=== PATIENT | male | born 1950 | race Caucasian/White ===

== ENCOUNTER 2022-07-16 16:57 | Inpatient (IN) | payer BC, OTHER ==
[2022-07-16] MEDS ORDERED: FAMOTIDINE 20 MG/50 ML IVPB 20 MG/50 ML MG IVPB ONE ×2 (18:56→19:07)
[2022-07-16] MEDS ORDERED: ACETAMINOPHEN 1000 MG/100 ML BAG IVPB ONE (18:56)
[2022-07-16] MEDS ORDERED: MAG HYDROX/AL HYDROX/SIMETH 30 ML UNIT-DOSE CUP PO ONE (18:56)
[2022-07-16] MEDS ORDERED: MAG HYDROX/AL HYDROX/SIMETH 30 ML UNIT-DOSE CUP ONE (19:07)
[2022-07-16] MEDS ORDERED: ACETAMINOPHEN INJECTION 100 ML IVPB ONE (19:07)
[2022-07-16 19:27] LABS: BASO % 0.3 % (0-2.0); EOS % 5.5 % (0-4.5); HEMATOCRIT 36.2 % (35.4-49); HEMOGLOBIN 12.3 GM/dL (11.7-16.9); LYMPH % 19.4 % (8-40); MCH 31.9 pg (25.7-33.7); MEAN CELL VOLUME 93.7 fl (80-96); MEAN PLT VOLUME 8.8 fl (7.5-11.1); MONO % 6.3 % (3.8-10.2); NEUT % 68.5 % (42.8-82.8); PLATELET COUNT 146 10^3/uL (134-434); RBC 3.87 M/mm3 (4.00-5.60); RDW 14.3 % (11.9-15.9); WHITE BLOOD COUNT 7.3 K/mm3 (4.0-10.0)
[2022-07-16 19:30] LABS: EPI CELLS 2 /uL (0-25.1); HYALINE CASTS 0 /uL (0-3.1); PH,URINE 5.5 (5.0-8.0); URINE APPEARANCE CLEAR; URINE BACTERIA 1 /uL (0-1359); URINE BILIRUBIN NEGATIVE (NEGATIVE); URINE COLOR YELLOW; URINE GLUCOSE (UA) NEGATIVE (NEGATIVE); URINE KETONE NEGATIVE (NEGATIVE); URINE LEUK ESTERASE NEGATIVE (NEGATIVE); URINE NITRITE NEGATIVE (NEGATIVE); URINE PROTEIN 1+ (NEGATIVE); URINE RBC 71 /uL (0-23.9); URINE UROBILINOGEN 0.2 mg/dL (0.2-1.0); URINE WBC 3 /uL (0-25.8)
[2022-07-16 19:40] LABS: INR 1.21 (0.83-1.09)
[2022-07-16 19:42] LABS: ACTIVATED PTT 32.3 SECONDS (25.2-36.5)
[2022-07-16 20:02] LABS: POTASSIUM 3.7 mmol/L (3.5-5.1)
[2022-07-16 20:05] LABS: ALBUMIN 3.8 g/dl (3.4-5.0); BLOOD UREA NITROGEN 25.7 mg/dL (7-18); MAGNESIUM 2.1 mg/dL (1.8-2.4)
[2022-07-16 20:07] LABS: CREATININE 0.8 mg/dL (0.55-1.3)
[2022-07-16 20:09] LABS: BILIRUBIN,TOTAL 0.5 mg/dL (0.2-1); TOT PROT 7.2 g/dl (6.4-8.2)
[2022-07-16 20:13] LABS: N-TERMINAL BNP 5874.9 pg/ml (5-125)
[2022-07-17] MEDS ORDERED: FUROSEMIDE 40 MG/4 ML INJECTABLE VIAL IVPUSH ONE (02:45)
[2022-07-17] MEDS ORDERED: FUROSEMIDE 40 MG/4 ML INJECTABLE VIAL ONE (03:07)
[2022-07-17 07:06] LABS: BASO % 0.3 % (0-2.0); EOS % 6.8 % (0-4.5); HEMATOCRIT 36.1 % (35.4-49); HEMOGLOBIN 12.6 GM/dL (11.7-16.9); LYMPH % 17.7 % (8-40); MCH 32.5 pg (25.7-33.7); MCHC 34.9 g/dl (32.0-35.9); MEAN CELL VOLUME 93.1 fl (80-96); MEAN PLT VOLUME 9.3 fl (7.5-11.1); MONO % 8.1 % (3.8-10.2); NEUT % 67.1 % (42.8-82.8); PLATELET COUNT 147 10^3/uL (134-434); RBC 3.88 M/mm3 (4.00-5.60); RDW 13.9 % (11.9-15.9); WHITE BLOOD COUNT 5.3 K/mm3 (4.0-10.0)
[2022-07-17 07:30] LABS: POTASSIUM 3.3 mmol/L (3.5-5.1)
[2022-07-17 07:33] LABS: ALBUMIN 3.8 g/dl (3.4-5.0); BLOOD UREA NITROGEN 19.9 mg/dL (7-18); CALCIUM 9.1 mg/dL (8.5-10.1)
[2022-07-17 07:35] LABS: MAGNESIUM 1.8 mg/dL (1.8-2.4)
[2022-07-17 07:37] LABS: CREATININE 0.8 mg/dL (0.55-1.3)
[2022-07-17 07:38] LABS: BILIRUBIN,TOTAL 1.6 mg/dL (0.2-1); TOT PROT 6.9 g/dl (6.4-8.2)
[2022-07-17] MEDS ORDERED: APIXABAN 5 MG TABLET PO SCH (10:00)
[2022-07-17] MEDS ORDERED: POTASSIUM CHLORIDE TABS 20 MEQ TABLET.ER (FP) PO ONE (14:22)
[2022-07-17] MEDS: POLYETHYLENE GLYCOL (HEALTHYLAX) 3350 17 GM PACKET PO SCH (17:08)
[2022-07-17] MEDS: APIXABAN 5 MG TABLET PO SCH (21:35)
[2022-07-17] MEDS: CARVEDILOL 3.125 MG TABLET (FP) PO SCH (21:35)
[2022-07-18] MEDS: POLYETHYLENE GLYCOL (HEALTHYLAX) 3350 17 GM PACKET PO SCH (09:52)
[2022-07-18] MEDS: FUROSEMIDE 20 MG TABLET (FP) PO SCH (09:52)
[2022-07-18] MEDS: APIXABAN 5 MG TABLET PO SCH ×2 (09:52→21:26)
[2022-07-18] MEDS: CARVEDILOL 3.125 MG TABLET (FP) PO SCH ×2 (09:52→21:26)
[2022-07-18] MEDS: LISINOPRIL 20 MG TABLET PO SCH (09:53)
[2022-07-18 10:23] LABS: POTASSIUM 3.8 mmol/L (3.5-5.1)
[2022-07-18 10:24] LABS: CALCIUM 8.7 mg/dL (8.5-10.1)
[2022-07-18 10:25] LABS: BLOOD UREA NITROGEN 17.6 mg/dL (7-18); MAGNESIUM 2.1 mg/dL (1.8-2.4)
[2022-07-18 10:28] LABS: CREATININE 0.9 mg/dL (0.55-1.3); PHOSPHOROUS 2.8 mg/dL (2.5-4.9)
[2022-07-18] MEDS ORDERED: FAMOTIDINE 20 MG/50 ML IVPB 20 MG/50 ML MG IVPB ONE (12:01)
[2022-07-18] MEDS: ACETAMINOPHEN 325 MG TABLET (FP) PO PRN (12:28)
[2022-07-18] MEDS: METOCLOPRAMIDE HCL 10 MG TABLET (FP) PO SCH (16:37)
[2022-07-19] MEDS: METOCLOPRAMIDE HCL 10 MG TABLET (FP) PO SCH ×3 (06:01→16:53)
[2022-07-19] MEDS: ACETAMINOPHEN 325 MG TABLET (FP) PO PRN ×2 (06:05→21:09)
[2022-07-19 06:44] LABS: POTASSIUM 3.7 mmol/L (3.5-5.1)
[2022-07-19 06:46] LABS: CALCIUM 8.6 mg/dL (8.5-10.1)
[2022-07-19 06:49] LABS: PHOSPHOROUS 3.6 mg/dL (2.5-4.9)
[2022-07-19 06:50] LABS: CREATININE 0.8 mg/dL (0.55-1.3)
[2022-07-19 07:11] LABS: HEMATOCRIT 37.6 % (35.4-49); HEMOGLOBIN 13.2 GM/dL (11.7-16.9); MCH 32.7 pg (25.7-33.7); MCHC 35.2 g/dl (32.0-35.9); MEAN PLT VOLUME 8.8 fl (7.5-11.1); PLATELET COUNT 164 10^3/uL (134-434); RBC 4.04 M/mm3 (4.00-5.60); RDW 14.1 % (11.9-15.9); WHITE BLOOD COUNT 5.7 K/mm3 (4.0-10.0)
[2022-07-19] MEDS: FUROSEMIDE 20 MG TABLET (FP) PO SCH (09:44)
[2022-07-19] MEDS: LISINOPRIL 20 MG TABLET PO SCH (09:44)
[2022-07-19] MEDS: CARVEDILOL 3.125 MG TABLET (FP) PO SCH ×2 (09:44→21:07)
[2022-07-19] MEDS: APIXABAN 5 MG TABLET PO SCH ×2 (09:45→21:07)
[2022-07-19] MEDS: POLYETHYLENE GLYCOL (HEALTHYLAX) 3350 17 GM PACKET PO SCH (09:45)
[2022-07-20] MEDS: METOCLOPRAMIDE HCL 10 MG TABLET (FP) PO SCH ×3 (06:28→19:47)
[2022-07-20 07:12] LABS: HEMATOCRIT 34.6 % (35.4-49); HEMOGLOBIN 11.9 GM/dL (11.7-16.9); MCHC 34.5 g/dl (32.0-35.9); MEAN CELL VOLUME 92.8 fl (80-96); MEAN PLT VOLUME 8.6 fl (7.5-11.1); PLATELET COUNT 148 10^3/uL (134-434); RBC 3.73 M/mm3 (4.00-5.60); RDW 14.1 % (11.9-15.9); WHITE BLOOD COUNT 4.7 K/mm3 (4.0-10.0)
[2022-07-20 07:19] LABS: POTASSIUM 3.8 mmol/L (3.5-5.1)
[2022-07-20 07:26] LABS: BLOOD UREA NITROGEN 24.4 mg/dL (7-18); CALCIUM 8.5 mg/dL (8.5-10.1)
[2022-07-20 07:27] LABS: MAGNESIUM 1.9 mg/dL (1.8-2.4)
[2022-07-20 07:28] LABS: CREATININE 0.8 mg/dL (0.55-1.3); PHOSPHOROUS 3.8 mg/dL (2.5-4.9)
[2022-07-20] MEDS: POLYETHYLENE GLYCOL (HEALTHYLAX) 3350 17 GM PACKET PO SCH (10:01)
[2022-07-20] MEDS: CARVEDILOL 3.125 MG TABLET (FP) PO SCH ×2 (10:02→21:53)
[2022-07-20] MEDS: LISINOPRIL 20 MG TABLET PO SCH (10:02)
[2022-07-20] MEDS: FUROSEMIDE 20 MG TABLET (FP) PO SCH (10:02)
[2022-07-20] MEDS: APIXABAN 5 MG TABLET PO SCH ×2 (10:03→21:52)
[2022-07-20 13:43] LABS: BASO % 0.3 % (0-2.0); EOS % 6.5 % (0-4.5); HEMATOCRIT 35.6 % (35.4-49); HEMOGLOBIN 12.5 GM/dL (11.7-16.9); MCH 32.9 pg (25.7-33.7); MCHC 35.2 g/dl (32.0-35.9); MEAN CELL VOLUME 93.4 fl (80-96); MEAN PLT VOLUME 9.3 fl (7.5-11.1); MONO % 5.3 % (3.8-10.2); NEUT % 69.9 % (42.8-82.8); PLATELET COUNT 151 10^3/uL (134-434); RBC 3.81 M/mm3 (4.00-5.60); RDW 13.8 % (11.9-15.9); WHITE BLOOD COUNT 5.8 K/mm3 (4.0-10.0)
[2022-07-21] MEDS: METOCLOPRAMIDE HCL 10 MG TABLET (FP) PO SCH ×3 (06:02→17:15)
[2022-07-21 07:23] LABS: BASO % 0.3 % (0-2.0); EOS % 5.4 % (0-4.5); HEMATOCRIT 36.2 % (35.4-49); HEMOGLOBIN 12.6 GM/dL (11.7-16.9); LYMPH % 17.5 % (8-40); MCH 32.3 pg (25.7-33.7); MCHC 34.9 g/dl (32.0-35.9); MEAN CELL VOLUME 92.7 fl (80-96); MEAN PLT VOLUME 9.4 fl (7.5-11.1); MONO % 6.9 % (3.8-10.2); NEUT % 69.9 % (42.8-82.8); PLATELET COUNT 162 10^3/uL (134-434); RBC 3.91 M/mm3 (4.00-5.60); RDW 14.2 % (11.9-15.9); WHITE BLOOD COUNT 5.9 K/mm3 (4.0-10.0)
[2022-07-21 07:38] LABS: POTASSIUM 4.2 mmol/L (3.5-5.1)
[2022-07-21 07:45] LABS: ALBUMIN 3.2 g/dl (3.4-5.0); BLOOD UREA NITROGEN 20.1 mg/dL (7-18); CALCIUM 8.9 mg/dL (8.5-10.1)
[2022-07-21 07:46] LABS: PHOSPHOROUS 3.6 mg/dL (2.5-4.9)
[2022-07-21 07:47] LABS: TOT PROT 6.3 g/dl (6.4-8.2)
[2022-07-21 07:48] LABS: BILIRUBIN,TOTAL 0.8 mg/dL (0.2-1); CREATININE 0.9 mg/dL (0.55-1.3)
[2022-07-21] MEDS: APIXABAN 5 MG TABLET PO SCH ×2 (10:34→21:48)
[2022-07-21] MEDS: FUROSEMIDE 20 MG TABLET (FP) PO SCH (10:34)
[2022-07-21] MEDS: CARVEDILOL 3.125 MG TABLET (FP) PO SCH ×2 (10:34→21:48)
[2022-07-21] MEDS: LISINOPRIL 20 MG TABLET PO SCH (10:34)
[2022-07-21] MEDS ORDERED: COSYNTROPIN 0.25 MG VIAL IVPUSH ONE ×2 (14:30→16:00)
[2022-07-21] MEDS ORDERED: COSYNTROPIN 0.25 MG VIAL IVPB ONE (15:00)
[2022-07-21] MEDS ORDERED: COSYNTROPIN IVPB ONE (16:30)
[2022-07-21] MEDS ORDERED: SODIUM CHLORIDE IVPB ONE (16:30)
[2022-07-22] MEDS: METOCLOPRAMIDE HCL 10 MG TABLET (FP) PO SCH ×3 (06:19→17:08)
[2022-07-22 09:28] LABS: BASO % 0.3 % (0-2.0); EOS % 3.5 % (0-4.5); HEMATOCRIT 36.9 % (35.4-49); HEMOGLOBIN 12.7 GM/dL (11.7-16.9); LYMPH % 18.9 % (8-40); MCH 32.2 pg (25.7-33.7); MCHC 34.5 g/dl (32.0-35.9); MEAN CELL VOLUME 93.3 fl (80-96); MEAN PLT VOLUME 9.2 fl (7.5-11.1); MONO % 6.2 % (3.8-10.2); NEUT % 71.1 % (42.8-82.8); PLATELET COUNT 176 10^3/uL (134-434); RBC 3.96 M/mm3 (4.00-5.60); RDW 13.9 % (11.9-15.9); WHITE BLOOD COUNT 6.7 K/mm3 (4.0-10.0)
[2022-07-22] MEDS: CARVEDILOL 3.125 MG TABLET (FP) PO SCH ×2 (09:29→22:32)
[2022-07-22] MEDS: LISINOPRIL 20 MG TABLET PO SCH (09:29)
[2022-07-22] MEDS: FUROSEMIDE 20 MG TABLET (FP) PO SCH (09:29)
[2022-07-22] MEDS: APIXABAN 5 MG TABLET PO SCH ×2 (09:29→22:32)
[2022-07-22 09:46] LABS: POTASSIUM 3.8 mmol/L (3.5-5.1)
[2022-07-22 10:02] LABS: ALBUMIN 3.4 g/dl (3.4-5.0); BLOOD UREA NITROGEN 19.3 mg/dL (7-18)
[2022-07-22 10:04] LABS: MAGNESIUM 1.9 mg/dL (1.8-2.4)
[2022-07-22 10:05] LABS: CREATININE 0.8 mg/dL (0.55-1.3); PHOSPHOROUS 3.4 mg/dL (2.5-4.9); TOT PROT 6.7 g/dl (6.4-8.2)
[2022-07-23] MEDS: METOCLOPRAMIDE HCL 10 MG TABLET (FP) PO SCH (06:27)
[2022-07-23 09:04] LABS: BASO % 0.4 % (0-2.0); EOS % 7.8 % (0-4.5); HEMOGLOBIN 12.6 GM/dL (11.7-16.9); LYMPH % 20.4 % (8-40); MCH 32.3 pg (25.7-33.7); MCHC 34.9 g/dl (32.0-35.9); MEAN CELL VOLUME 92.4 fl (80-96); MEAN PLT VOLUME 9.8 fl (7.5-11.1); MONO % 7.2 % (3.8-10.2); NEUT % 64.2 % (42.8-82.8); PLATELET COUNT 156 10^3/uL (134-434); RDW 14.1 % (11.9-15.9); WHITE BLOOD COUNT 5.4 K/mm3 (4.0-10.0)
[2022-07-23 09:05] LABS: POTASSIUM 3.8 mmol/L (3.5-5.1)
[2022-07-23 09:09] LABS: CALCIUM 8.6 mg/dL (8.5-10.1)
[2022-07-23 09:10] LABS: ALBUMIN 3.1 g/dl (3.4-5.0); BLOOD UREA NITROGEN 25.8 mg/dL (7-18); MAGNESIUM 1.8 mg/dL (1.8-2.4)
[2022-07-23 09:13] LABS: CREATININE 0.8 mg/dL (0.55-1.3); PHOSPHOROUS 3.2 mg/dL (2.5-4.9)
[2022-07-23 09:14] LABS: BILIRUBIN,TOTAL 0.6 mg/dL (0.2-1); TOT PROT 6.2 g/dl (6.4-8.2)
[2022-07-23] MEDS ORDERED: DICYCLOMINE HCL 10 MG CAPSULE PO PRN (09:37)
[2022-07-23] MEDS: LISINOPRIL 20 MG TABLET PO SCH (10:19)
[2022-07-23] MEDS: CARVEDILOL 3.125 MG TABLET (FP) PO SCH (10:19)
[2022-07-23] MEDS: APIXABAN 5 MG TABLET PO SCH (10:19)
[2022-07-23] MEDS: FUROSEMIDE 20 MG TABLET (FP) PO SCH (10:19)
[2022-07-23 11:05] VITALS: BP 121/61; PULSE 71; RESP 18; TEMP 97.7
[2022-07-23 12:25] VITALS: BMI 21.1
== END 2022-07-23 13:44 | disposition home or self-care (01) | DRG 291 ==
LOC: JER 16:57 → JERFT 16:57 → JERBED 23:20 → J4S 07-17 03:37
PROVIDERS: ADMIT Internal Medicine; ATTEND Internal Medicine
DX: I11.0 Hypertensive heart disease with heart failure (principal); I50.23 Acute on chronic systolic (congestive) heart failure; J98.11 Atelectasis; K92.2 Gastrointestinal hemorrhage, unspecified; K55.9 Vascular disorder of intestine, unspecified; E27.40 Unspecified adrenocortical insufficiency; K40.90 Unilateral inguinal hernia, without obstruction or gangrene, not specified as recurrent; N40.0 Benign prostatic hyperplasia without lower urinary tract symptoms; I48.91 Unspecified atrial fibrillation; J02.9 Acute pharyngitis, unspecified; E87.6 Hypokalemia; R68.81 Early satiety; Z68.21 Body mass index [BMI] 21.0-21.9, adult; K21.9 Gastro-esophageal reflux disease without esophagitis; R10.9 Unspecified abdominal pain; R05.9 Cough, unspecified; K59.00 Constipation, unspecified; D72.19 Other eosinophilia
CPT/HCPCS: 0241U-QW; 36415; 71046-TC-FY; 71275-TC; 74174-TC; 74177-TC; 78226-TC; 80048; 80053; 80061; 81003; 82272; 82533; 83605; 83690; 83735; 83880; 84100; 84153; 84439; 84443; 84484; 85025; 85027; 85610; 85730; 86850; 86900; 86901; 87086; 87209; 87651; 93005; 93010; 93306-TC; 97116-GP; 97161-GP; 99285-25; A9537; J0834

== ENCOUNTER 2023-09-06 01:24 | Emergency (ER) | payer BC, OTHER ==
[2023-09-06 01:34] VITALS: TEMP 97.3; BMI 22.8
[2023-09-06] MEDS ORDERED: ACETAMINOPHEN INJECTION 100 ML IVPB ONE (01:57)
[2023-09-06] MEDS ORDERED: MAG HYDROX/AL HYDROX/SIMETH 30 ML UNIT-DOSE CUP ONE (01:57)
[2023-09-06] MEDS ORDERED: SUCRALFATE 1 GM TABLET (FP) ONE (01:57)
[2023-09-06] MEDS ORDERED: FAMOTIDINE 20 MG/50 ML IVPB 20 MG/50 ML MG IVPB ONE (01:58)
[2023-09-06] MEDS: ACETAMINOPHEN 1000 MG/100 ML BAG IVPB ONE (02:22)
[2023-09-06] MEDS: MAG HYDROX/AL HYDROX/SIMETH 30 ML UNIT-DOSE CUP PO ONE (02:22)
[2023-09-06] MEDS: SUCRALFATE 1 GM TABLET (FP) PO ONE (02:26)
[2023-09-06] MEDS: FAMOTIDINE 20 MG/50 ML IVPB 20 MG/50 ML MG IVPB ONE (02:26)
[2023-09-06 02:54] LABS: INR 1.31 (0.83-1.09)
[2023-09-06 02:55] LABS: BASO % 0.3 % (0-2.0); EOS % 8.3 % (0-4.5); HEMATOCRIT 38.1 % (35.4-49); HEMOGLOBIN 12.8 GM/dL (11.7-16.9); LYMPH % 24.7 % (8-40); MCH 31.9 pg (25.7-33.7); MCHC 33.6 g/dl (32.0-35.9); MEAN PLT VOLUME 9.7 fl (7.5-11.1); MONO % 8.4 % (3.8-10.2); NEUT % 58.3 % (42.8-82.8); PLATELET COUNT 140 10^3/uL (134-434); RBC 4.01 M/mm3 (4.00-5.60); RDW 13.8 % (11.9-15.9); WHITE BLOOD COUNT 4.4 K/mm3 (4.0-10.0)
[2023-09-06 03:03] LABS: POTASSIUM 3.4 mmol/L (3.5-5.1)
[2023-09-06 03:05] LABS: BLOOD UREA NITROGEN 17.6 mg/dL (7-18); CALCIUM 9.2 mg/dL (8.5-10.1); MAGNESIUM 2.1 mg/dL (1.8-2.4)
[2023-09-06 03:06] LABS: ALBUMIN 3.8 g/dl (3.4-5.0)
[2023-09-06 03:08] LABS: CREATININE 1.2 mg/dL (0.55-1.3)
[2023-09-06 03:10] LABS: BILIRUBIN,TOTAL 0.8 mg/dL (0.2-1); TOT PROT 6.7 g/dl (6.4-8.2)
[2023-09-06 04:22] LABS: ACTIVATED PTT 36.3 SECONDS (25.2-36.5)
[2023-09-06] MEDS: SODIUM CHLORIDE 0.9% 500 ML INFUS.BAG IV ONE (05:29)
[2023-09-06 06:07] VITALS: BP 153/100; PULSE 62; RESP 15
[2023-09-06] MEDS ORDERED: METOCLOPRAMIDE HCL INJECTION 10 MG/2 ML VIAL ONE (06:10)
[2023-09-06] MEDS: METOCLOPRAMIDE HCL INJECTION 10 MG/2 ML VIAL IVPUSH ONE (06:15)
[2023-09-06 07:03] LABS: PH,URINE 7.5 (5.0-8.0); URINE APPEARANCE CLEAR; URINE BILIRUBIN NEGATIVE (NEGATIVE); URINE COLOR YELLOW; URINE GLUCOSE (UA) NEGATIVE (NEGATIVE); URINE KETONE NEGATIVE (NEGATIVE); URINE LEUK ESTERASE NEGATIVE (NEGATIVE); URINE NITRITE NEGATIVE (NEGATIVE); URINE PROTEIN NEGATIVE (NEGATIVE); URINE UROBILINOGEN 0.2 mg/dL (0.2-1.0)
== END 2023-09-06 08:34 | disposition home or self-care (01) ==
LOC: JER 01:24
PROC: 3E033GC Introduction of Other Therapeutic Substance into Peripheral Vein, Percutaneous Approach (ICD-10-PCS; principal; 2023-09-06)
PROC: 3E033GC Introduction of Other Therapeutic Substance into Peripheral Vein, Percutaneous Approach (ICD-10-PCS; 2023-09-06)
PROC: 3E033NZ Introduction of Analgesics, Hypnotics, Sedatives into Peripheral Vein, Percutaneous Approach (ICD-10-PCS; 2023-09-06)
DX: R10.84 Generalized abdominal pain (principal)
CPT/HCPCS: 36415; 71046-TC-FY; 74177-TC; 80053; 81003; 83605; 83690; 83735; 84484; 85025; 85610; 85730; 86850; 86900; 86901; 87086; 93005; 93010; 99285-25; J0131; Q9967

== ENCOUNTER 2024-02-11 05:22 | Inpatient (IN) | payer OTHER ==
[2024-02-11] MEDS ORDERED: FAMOTIDINE 20 MG/50 ML IVPB 20 MG/50 ML MG IVPB ONE (05:59)
[2024-02-11] MEDS: ACETAMINOPHEN 1000 MG/100 ML BAG IVPB ONE ×2 (06:05→12:04)
[2024-02-11] MEDS: FAMOTIDINE 20 MG/50 ML IVPB 20 MG/50 ML MG IVPB ONE (06:05)
[2024-02-11 06:23] LABS: BASO % 0.3 % (0-2.0); EOS % 2.6 % (0-4.5); HEMATOCRIT 37.6 % (35.4-49); HEMOGLOBIN 12.4 GM/dL (11.7-16.9); LYMPH % 12.6 % (8-40); MCH 32.5 pg (25.7-33.7); MEAN CELL VOLUME 98.7 fl (80-96); MEAN PLT VOLUME 9.6 fl (7.5-11.1); MONO % 7.7 % (3.8-10.2); NEUT % 76.8 % (42.8-82.8); PLATELET COUNT 142 10^3/uL (134-434); RBC 3.81 M/mm3 (4.00-5.60); RDW 13.7 % (11.9-15.9); WHITE BLOOD COUNT 5.5 K/mm3 (4.0-10.0)
[2024-02-11 06:49] LABS: ALBUMIN 3.8 g/dl (3.4-5.0)
[2024-02-11 06:50] LABS: BLOOD UREA NITROGEN 37.7 mg/dL (7-18)
[2024-02-11 07:11] LABS: BILIRUBIN,TOTAL 0.8 mg/dL (0.2-1)
[2024-02-11 07:35] LABS: VENOUS BASE EXCESS -1.2 mmol/L (-2-2); VENOUS O2 SATURATION 49.3 % (70-80); VENOUS PCO2 38.1 mmHg (38-52); VENOUS PH 7.404 (7.310-7.410)
[2024-02-11 07:39] LABS: CREATININE 1.5 mg/dL (0.55-1.3)
[2024-02-11 07:40] LABS: CHOLESTEROL 139 mg/dL (50-200)
[2024-02-11 07:42] LABS: LDL CHOLESTEROL (ONLY SJRH) 69 mg/dL (5-100)
[2024-02-11 07:43] LABS: HDL CHOLESTEROL 56 mg/dL (40-60)
[2024-02-11] MEDS ORDERED: MORPHINE SULFATE 2 MG/ML SYRINGE ONE (07:51)
[2024-02-11] MEDS: morphine SULFATE 4 MG/ML VIAL IVPUSH ONE (08:29)
[2024-02-11 08:51] LABS: PH,URINE 5.5 (5.0-8.0); URINE APPEARANCE CLEAR; URINE BILIRUBIN NEGATIVE (NEGATIVE); URINE COLOR YELLOW; URINE GLUCOSE (UA) NEGATIVE (NEGATIVE); URINE KETONE NEGATIVE (NEGATIVE); URINE LEUK ESTERASE NEGATIVE (NEGATIVE); URINE NITRITE NEGATIVE (NEGATIVE); URINE PROTEIN TRACE (NEGATIVE); URINE UROBILINOGEN 0.2 mg/dL (0.2-1.0)
[2024-02-11 10:07] LABS: EPI CELLS 1 /uL (0-25.1); HYALINE CASTS 0 /uL (0-3.1); URINE BACTERIA 2 /uL (0-1359); URINE RBC 18 /uL (0-23.9); URINE WBC 2 /uL (0-25.8)
[2024-02-11] MEDS ORDERED: PIPERACILLIN/TAZOB 3.375 GM 3.375 GM/50 ML BAG IVPB ONE (11:52)
[2024-02-11] MEDS: PIPERACILLIN/TAZOB 3.375 GM 3.375 GM in DEXTROSE 5%-WATER - 50 ML IVPB ONE (11:57)
[2024-02-11] MEDS ORDERED: ACETAMINOPHEN INJECTION 100 ML ONE (11:57)
[2024-02-11] MEDS: LACTATED RINGERS SOLUTION 1000 ML INFUS.BAG IV ONE (12:12)
[2024-02-11] MEDS ORDERED: HEPARIN NA (PORCINE) 5,000 UNITS/ML 1ML VIAL IVPUSH PRN ×2 (14:24)
[2024-02-11] MEDS: PIPERACILLIN/TAZOB 3.375 GM 3.375 GM in DEXTROSE 5%-WATER - 50 ML IVPB SCH (16:30)
[2024-02-11] MEDS ORDERED: PIPERACILLIN/TAZOB 3.375 GM 3.375 GM/50 ML BAG IVPB SCH (17:00)
[2024-02-11] MEDS: LACTATED RINGERS SOLUTION 1,000 ML/1,000 ML INFUS.BAG IV SCH (17:40)
[2024-02-11] MEDS: PIPERACILLIN/TAZOB 3.375 GM 50 ML IVPB SCH (17:59)
[2024-02-11] MEDS: HEPARIN INFUSION - 25,000 UNITS/500 ML INFUS.BAG IVPB SCH (22:34)
[2024-02-12 07:41] LABS: HEMATOCRIT 37.5 % (35.4-49); HEMOGLOBIN 12.5 GM/dL (11.7-16.9); MCH 32.7 pg (25.7-33.7); MCHC 33.2 g/dl (32.0-35.9); MEAN CELL VOLUME 98.3 fl (80-96); MEAN PLT VOLUME 9.9 fl (7.5-11.1); PLATELET COUNT 142 10^3/uL (134-434); RBC 3.81 M/mm3 (4.00-5.60); RDW 13.9 % (11.9-15.9); WHITE BLOOD COUNT 5.2 K/mm3 (4.0-10.0)
[2024-02-12 07:48] LABS: INR 1.39 (0.83-1.09); PROTHROMBIN TIME (PATIENT) 15.6 SEC (9.7-13.0)
[2024-02-12 08:00] LABS: POTASSIUM 3.3 mmol/L (3.5-5.1)
[2024-02-12 08:02] LABS: CALCIUM 9.3 mg/dL (8.5-10.1)
[2024-02-12 08:03] LABS: ALBUMIN 3.8 g/dl (3.4-5.0)
[2024-02-12 08:06] LABS: CREATININE 1.1 mg/dL (0.55-1.3); PHOSPHOROUS 2.8 mg/dL (2.5-4.9)
[2024-02-12 08:08] LABS: BILIRUBIN,TOTAL 1.7 mg/dL (0.2-1); TOT PROT 6.8 g/dl (6.4-8.2)
[2024-02-12] MEDS: amLODIPine BESYLATE 10 MG TABLET (FP) PO SCH (09:46)
[2024-02-12] MEDS: FUROSEMIDE 20 MG TABLET (FP) PO SCH (09:46)
[2024-02-12] MEDS ORDERED: amLODIPine BESYLATE 10 MG TABLET (FP) PO SCH (10:00)
[2024-02-12 11:46] VITALS: BMI 22.4
[2024-02-12] MEDS: POTASSIUM CHLORIDE TABS 20 MEQ TABLET.ER (FP) PO ONE (15:28)
[2024-02-12] MEDS: ACETAMINOPHEN 325 MG TABLET (FP) PO PRN (17:12)
[2024-02-12] MEDS: MELATONIN 5 MG TABLETS PO PRN (20:58)
[2024-02-13 06:47] LABS: HEMATOCRIT 37.1 % (35.4-49); HEMOGLOBIN 12.4 GM/dL (11.7-16.9); MCH 32.6 pg (25.7-33.7); MCHC 33.3 g/dl (32.0-35.9); MEAN CELL VOLUME 97.8 fl (80-96); MEAN PLT VOLUME 9.3 fl (7.5-11.1); PLATELET COUNT 139 10^3/uL (134-434); RBC 3.79 M/mm3 (4.00-5.60); RDW 14.3 % (11.9-15.9); WHITE BLOOD COUNT 5.5 K/mm3 (4.0-10.0)
[2024-02-13 06:51] LABS: BASO % 0.3 % (0-2.0); EOS % 4.1 % (0-4.5); HEMOGLOBIN 12.3 GM/dL (11.7-16.9); LYMPH % 21.6 % (8-40); MCH 32.5 pg (25.7-33.7); MCHC 33.2 g/dl (32.0-35.9); MEAN PLT VOLUME 9.6 fl (7.5-11.1); MONO % 8.5 % (3.8-10.2); NEUT % 65.5 % (42.8-82.8); PLATELET COUNT 143 10^3/uL (134-434); RBC 3.77 M/mm3 (4.00-5.60); RDW 13.8 % (11.9-15.9); WHITE BLOOD COUNT 5.5 K/mm3 (4.0-10.0)
[2024-02-13 07:42] LABS: ALBUMIN 3.9 g/dl (3.4-5.0); BILIRUBIN,TOTAL 1.6 mg/dL (0.2-1); BLOOD UREA NITROGEN 20.4 mg/dL (7-18); CALCIUM 9.2 mg/dL (8.5-10.1); CREATININE 1.2 mg/dL (0.55-1.3); POTASSIUM 3.3 mmol/L (3.5-5.1); TOT PROT 7.2 g/dl (6.4-8.2)
[2024-02-13] MEDS ORDERED: amLODIPine BESYLATE 5 MG TABLET (FP) PO SCH (08:03)
[2024-02-13] MEDS: LISINOPRIL 20 MG TABLET PO SCH (09:33)
[2024-02-13] MEDS: POTASSIUM CHLORIDE ORAL LIQUID 20 MEQ/15 ML PO SCH (09:33)
[2024-02-13] MEDS: METOPROLOL TARTRATE 25 MG TABLET (FP) PO SCH (09:33)
[2024-02-13] MEDS: APIXABAN 5 MG TABLET PO SCH (13:14)
[2024-02-13] MEDS: DOCUSATE SODIUM 100 MG CAPSULE (FP) PO SCH (14:08)
[2024-02-13 14:51] LABS: BILIRUBIN,DIRECT 0.5 mg/dL (0.0-0.2)
[2024-02-13] MEDS ORDERED: MAGNESIUM HYDROX 2400MG/30ML ORAL SUSPENSION 30 ML CUP PO PRN (18:31)
[2024-02-13] MEDS: MAGNESIUM HYDROX 2400MG/30ML ORAL SUSPENSION 30 ML CUP PO ONE (19:05)
[2024-02-13] MEDS: SENNOSIDES/DOCUSATE COMBO (SENNA PLUS) TABLET (UD) PO SCH (21:34)
[2024-02-14 08:36] LABS: POTASSIUM 4.8 mmol/L (3.5-5.1)
[2024-02-14 08:41] LABS: CALCIUM 9.7 mg/dL (8.5-10.1)
[2024-02-14 08:42] LABS: ALBUMIN 3.9 g/dl (3.4-5.0); MAGNESIUM 2.1 mg/dL (1.8-2.4)
[2024-02-14 08:45] LABS: CREATININE 1.3 mg/dL (0.55-1.3); PHOSPHOROUS 3.3 mg/dL (2.5-4.9)
[2024-02-14 08:46] LABS: BILIRUBIN,TOTAL 1.4 mg/dL (0.2-1); TOT PROT 7.1 g/dl (6.4-8.2)
[2024-02-14 08:47] LABS: BASO % 0.1 % (0-2.0); EOS % 0.2 % (0-4.5); HEMATOCRIT 36.9 % (35.4-49); HEMOGLOBIN 12.4 GM/dL (11.7-16.9); LYMPH % 8.3 % (8-40); MCH 32.9 pg (25.7-33.7); MCHC 33.5 g/dl (32.0-35.9); MEAN PLT VOLUME 9.7 fl (7.5-11.1); NEUT % 85.4 % (42.8-82.8); PLATELET COUNT 156 10^3/uL (134-434); RBC 3.77 M/mm3 (4.00-5.60); RDW 13.9 % (11.9-15.9); WHITE BLOOD COUNT 6.6 K/mm3 (4.0-10.0)
[2024-02-14] MEDS: ACETAMINOPHEN 325 MG TABLET (FP) PO PRN (09:21)
[2024-02-14] MEDS ORDERED: MAGNESIUM HYDROX 2400MG/30ML ORAL SUSPENSION 30 ML CUP PO PRN (13:34)
[2024-02-14] MEDS ORDERED: MELATONIN 5 MG TABLETS PO PRN (13:34)
[2024-02-14] MEDS ORDERED: ACETAMINOPHEN 325 MG TABLET (FP) PO PRN (13:34)
[2024-02-14] MEDS ORDERED: amLODIPine BESYLATE 10 MG TABLET (FP) PO ONE (13:56)
[2024-02-14] MEDS: amLODIPine BESYLATE 5 MG TABLET (FP) PO ONE (14:48)
[2024-02-14] MEDS: POLYETHYLENE GLYCOL (HEALTHYLAX) 3350 17 GM PACKET PO SCH (16:32)
[2024-02-14 17:00] VITALS: RESP 18
[2024-02-14] MEDS: APIXABAN 5 MG TABLET PO SCH (21:02)
[2024-02-14] MEDS: METOPROLOL TARTRATE 25 MG TABLET (FP) PO SCH (21:02)
[2024-02-14 21:15] VITALS: BP 151/105; PULSE 87; TEMP 97.2
[2024-02-14] MEDS ORDERED: SENNOSIDES/DOCUSATE COMBO (SENNA PLUS) TABLET (UD) PO SCH (22:00)
[2024-02-15] MEDS ORDERED: FUROSEMIDE 20 MG TABLET (FP) PO SCH (10:00)
[2024-02-15] MEDS ORDERED: LISINOPRIL 20 MG TABLET PO SCH (10:00)
[2024-02-15] MEDS ORDERED: amLODIPine BESYLATE 10 MG TABLET (FP) PO SCH (10:00)
== END 2024-02-14 21:00 | disposition home or self-care (01) | DRG 445 ==
LOC: JER 05:22 → JERBED 11:42 → J4W 16:27 → J6S 02-14 12:51
PROVIDERS: ADMIT Student in an Organized Health Care Education/Training Program; ATTEND Internal Medicine
DX: K80.00 Calculus of gallbladder with acute cholecystitis without obstruction (principal); I50.22 Chronic systolic (congestive) heart failure; N17.9 Acute kidney failure, unspecified; J90 Pleural effusion, not elsewhere classified; E80.4 Gilbert syndrome; I11.0 Hypertensive heart disease with heart failure; I48.91 Unspecified atrial fibrillation; K21.9 Gastro-esophageal reflux disease without esophagitis; E80.6 Other disorders of bilirubin metabolism; K59.09 Other constipation
CPT/HCPCS: 0241U-QW; 36415; 71275-TC; 74174-TC; 76700-TC; 76775-TC; 78226-TC; 80053; 80061; 81003; 82248; 82803; 83605; 83690; 83735; 84100; 84484; 85025; 85027; 85610; 85730; 86160; 86704; 86803; 87086; 87340; 93005; 93010; 93306-TC; 99285-25; A9537; J0131; J1644; Q9967